=== PATIENT | male | born 1985 | race Caucasian/White ===

== ENCOUNTER 2019-05-24 15:26 | Emergency (ER) | payer MEDICAID, MEDICARE ==
[2019-05-24 15:35] VITALS: BP 134/68
[2019-05-24] MEDS ORDERED: Tetracaine 0.5% OPTH.SOL 4 ML* 1 DROP BTL ONE (15:44)
[2019-05-24] MEDS ORDERED: Fluorescein Sodium TOPICAL* 1 MG TEST STRIP OPHTHALMIC ONE (15:45)
--- NOTE | 2019-05-24 15:47 | UC ---
Eye Complaint HPI - HPI Summary HPI Summary: Patient is a 34yo M presenting with foreign body sensation in left eye since last night. Patient states he was working on a car and thinks some dirt or metal got into his eye. He denies pain but complains of constant irritation. Notes swelling of eyelid and excessive tearing. Denies washing it out. Denies taking any medication for pain relief. Patient denies changes in vision. Denies wearing contacts or glasses. Patient is unsure of last tetanus shot. - History of Current Complaint Chief Complaint: UCEye Stated Complaint: eye complaint Time Seen by Provider: 05/24/19 15:35 Hx Obtained From: Patient Severity Initially: Moderate Severity Currently: Moderate Pain Intensity: 6 Pain Scale Used: 0-10 Numeric - Allergies/Home Medications Allergies/Adverse Reactions: Allergies Allergy/AdvReac Type Severity Reaction Status Date / Time hydrocodone Allergy Nausea Verified 05/24/19 15:35 PMH/Surg Hx/FS Hx/Imm Hx Other History Of: Negative For: Anticoagulant Therapy - Surgical History Surgical History: None - Family History Known Family History: Positive: Non-Contributory - Social History Alcohol Use: Rare Substance Use Type: None Smoking Status (MU): Light Every Day Tobacco Smoker Type: Cigars Amount Used/How Often: 2-3 Review of Systems All Other Systems Reviewed And Are Negative: Yes Eyes: Positive: Eye Redness - left eye, Other - patient notes excessive tearing and upper eyelid swelling of left eye. Negative: Blurred Vision, Diplopia, Photophobia Neurological: Negative: Headache Physical Exam Triage Information Reviewed: Yes Appearance: Well-Appearing, Well-Nourished Vital Signs: Initial Vital Signs Temp 98.7 F 05/24/19 15:29 Pulse 76 05/24/19 15:29 Resp 16 05/24/19 15:29 BP 134/68 05/24/19 15:29 Pulse Ox 96 05/24/19 15:29 Vital Signs Reviewed: Yes Eyes: Positive: Conjunctiva Inflamed, Other: - small black foreign body noted on lateral aspect of left eye iris. no rust ring noted. left upper eyelid edema present ENT Exam: Other - [facility] Procedures - Procedure Summary Procedure Summary: Verbal permission was obtained from patient to apply tetracaine drops to left eye and use fluorescein and cotton swab to remove small black foreign body found in lower eyelid. Another small black foreign body unable to be removed from iris. Dr. Torres also examined the patient and attempted to remove the foreign body. Eye Complaint Course/Dx - Course Course Of Treatment: Patient instructed to use antibiotic ointment exactly as prescribed. Instructed to use eye drops for pain as prescribed but not for more than 5 days. The remaining foreign body was unable to be removed, so the patient was informed that it is very important that see ophthamology on Sunday. Patient told go to the emergency room if they develop vision changes. Patient voiced understanding and agreed to treatment plan. - Differential Dx/Diagnosis Provider Diagnosis: Foreign body in eyeball, left Discharge ED - Sign-Out/Discharge Documenting (check all that apply): Patient Departure All imaging exams completed and their final reports reviewed: No Studies - Discharge Plan Condition: Stable Disposition: HOME Prescriptions: Erythromycin OPTH OINT* [Erythromycin 0.5% OPTH OINT*] 1 applic LEFT EYE TID #1 ophth.oint Ketorolac 0.5% OPHTH (NF) 1 drop LEFT EYE QID #1 btl Patient Education Materials: Diphtheria/Acellular Pertussis/Tetanus Booster Vaccine (By injection), Eye Foreign Body (ED) Forms: *Work Release Referrals: Kushal Reaves MD [Medical Doctor] - As Soon As Possible Additional Instructions: Use antibiotic exactly as prescribed. Ok to use eye drops for pain as prescribed. Do not use for more than 5 days. As discussed, the provider was unable to remove the foreign body. It is very important that you see ophthamology on Sunday. If you develop any vision changes, go to the emergency room. You received a tetanus shot today. Your arm may be sore tomorrow at the injection site. This is normal. - Billing Disposition and Condition Condition: STABLE Disposition: Home - Attestation Statements Provider Attestation: Asked by PA to evaluate patient. 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 Patient with apparent melt tablet foreign body in his left eye. Foreign body is visible to the naked eye as well as unforeseen. It is 2 mm lateral to the pupil on the iris. PA attempted to remove using Q-tip. Was unable to dislodge foreign body asked me to evaluate. I long conversation with patient as well as his significant other. Gave permission to use fine- needle. Patient anesthetized with tetracaine. Using 30-gauge needle 1 inch needle attempted to remove metallic foreign body. Patient tolerated very well. Able to touch body. After multiple seeps unable to remove it. Discussed with patient concern that is embedded further my comfort level. Recommend patient to a tetanus booster, we'll prescribe erythromycin ointment. We'll also give courts ketorolac eyedrops to use. Counseled patient that he must call ophthalmology on Sunday morning to have this removed. Advised patient is difficult to get an appointment he should call the urgent care for assistance. Patient given note for work. Strict return precautions discussed. Patient states understanding agreement with plan.
[2019-05-24] MEDS ORDERED: Tetan/Diph/Pertus SYR(Tdap)* 0.5 ML SYR(BOOSTRIX) use SYR IM ONE (16:18)
== END 2019-05-24 16:33 | disposition home or self-care (01) ==
LOC: UCEAST 15:26
DX: T15.02XA Foreign body in cornea, left eye, initial encounter (principal); W22.8XXA Striking against or struck by other objects, initial encounter; Y92.9 Unspecified place or not applicable; F17.210 Nicotine dependence, cigarettes, uncomplicated; Z23 Encounter for immunization
CPT/HCPCS: 90471; 90715; 99202; A9270-GY; G0463